=== PATIENT | male | born 1995 | race Caucasian/White ===

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

== ENCOUNTER 2017-07-07 15:58 | Emergency (ER) | payer BC ==
[~2017-07-07] VITALS: Wt 70.3 kg
== END 2017-07-07 16:17 | disposition home or self-care (01) ==
LOC: ED 15:58
DX: S09.8XXA Other specified injuries of head, initial encounter (principal); R03.0 Elevated blood-pressure reading, without diagnosis of hypertension; F17.200 Nicotine dependence, unspecified, uncomplicated; Z91.040 Latex allergy status; Z88.8 Allergy status to other drugs, medicaments and biological substances; X58.XXXA Exposure to other specified factors, initial encounter; Y93.89 Activity, other specified; Y92.89 Other specified places as the place of occurrence of the external cause; Y99.8 Other external cause status

== ENCOUNTER 2021-01-26 15:20 | Emergency (ER) | payer OTHER, BC ==
[~2021-01-26] VITALS: Ht 172.7 cm; Wt 81.6 kg
[2021-01-26] MEDS ORDERED: CYCLOBENZAPRINE5 M3 PO (18:03)
[2021-01-26] MEDS ORDERED: Motrin,Rufen800 MG PO (18:03)
== END 2021-01-26 18:30 | disposition home or self-care (01) ==
LOC: ED 15:20
DX: S16.1XXA Strain of muscle, fascia and tendon at neck level, initial encounter (principal); S09.90XA Unspecified injury of head, initial encounter; Z91.040 Latex allergy status; Z88.8 Allergy status to other drugs, medicaments and biological substances; Z98.890 Other specified postprocedural states; V49.9XXA Car occupant (driver) (passenger) injured in unspecified traffic accident, initial encounter; Y93.89 Activity, other specified; Y92.89 Other specified places as the place of occurrence of the external cause; Y99.8 Other external cause status

== ENCOUNTER 2021-04-17 08:02 | Emergency (ER) | payer BC ==
[~2021-04-17] VITALS: Wt 81.6 kg
[~2021-04-17 08:02] MED LIST changes: +CYCLOBENZAPRINE5 M3 PO; +Motrin,Rufen800 MG PO
== END 2021-04-17 10:20 | disposition home or self-care (01) ==
LOC: ED 08:02
DX: S60.221A Contusion of right hand, initial encounter (principal); Z91.040 Latex allergy status; Z88.8 Allergy status to other drugs, medicaments and biological substances; Z79.899 Other long term (current) drug therapy; Z96.22 Myringotomy tube(s) status; W20.8XXA Other cause of strike by thrown, projected or falling object, initial encounter; Y93.89 Activity, other specified; Y92.89 Other specified places as the place of occurrence of the external cause; Y99.8 Other external cause status

== ENCOUNTER 2021-07-19 00:53 | Emergency (ER) | payer BC ==
[~2021-07-19] VITALS: Ht 172.7 cm; Wt 82.6 kg
[2021-07-19 01:24] LABS: BASO % 0.4 % (0.0-1.0); EOS # 0.1 10*3/uL (0.0-0.4); EOS % 1.1 % (1.0-4.0); HEMATOCRIT 50.8 % (42.0-52.0); LYMPH # 2.3 10*3/uL (1.3-4.4); LYMPH % 25.7 % (27.0-41.0); MEAN CELL VOLUME 84.5 fl (80.0-94.0); MEAN CORPUSCULAR HGB 28.8 pg (27.0-31.0); MEAN CORPUSCULAR HGB CONC 34.1 g/dl (33.0-37.0); MEAN PLATELET VOLUME 9.8 fl (9.6-12.3); MONO # 0.7 10*3/uL (0.1-1.0); MONO % 7.8 % (3.0-9.0); NEUT # 5.9 10*3/uL (2.3-7.9); NEUT % 64.8 % (47.0-73.0); PLATELET COUNT AUTOMATED 362 10*3/uL (130-400); RED BLOOD COUNT 6.01 10*6/uL (4.50-5.90); RED CELL DISTRI WIDTH 12.3 % (0-14.5); WHITE BLOOD COUNT 9.1 10*3/uL (4.8-10.8)
[2021-07-19 01:40] LABS: ALBUMIN 4.8 gm/dl (3.1-4.5); ALKALINE PHOSPHATASE 92 U/L (45-117); BUN 19 mg/dl (7-24); CHLORIDE 106 mmol/L (98-107); CREATININE 1.17 mg/dL (0.70-1.30); LIPASE 230 U/L (73-393); POTASSIUM 4.1 mmol/L (3.5-5.1); SGOT/AST 18 IU/L (3-35); SGPT/ALT 37 U/L (12-78); SODIUM 138 mmol/L (136-145); TOTAL PROTEIN 8.7 gm/dL (6.4-8.2)
[2021-07-19] MEDS ORDERED: OMEPRAZOLE40 MG PO (01:49)
== END 2021-07-19 02:30 | disposition home or self-care (01) ==
LOC: ED 00:53
PROVIDERS: Internal Medicine
DX: K21.9 Gastro-esophageal reflux disease without esophagitis (principal); R19.7 Diarrhea, unspecified; Z91.040 Latex allergy status; Z88.8 Allergy status to other drugs, medicaments and biological substances; Z79.899 Other long term (current) drug therapy; Z96.22 Myringotomy tube(s) status

== ENCOUNTER 2022-11-21 15:38 | Emergency (ER) | payer BC ==
[~2022-11-21] VITALS: Ht 172.7 cm; Wt 85.7 kg
[~2022-11-21 15:38] MED LIST changes: +OMEPRAZOLE40 MG PO
[2022-11-21] MEDS ORDERED: ONDANSETRON4 MG SL (16:58)
== END 2022-11-21 17:02 | disposition home or self-care (01) ==
LOC: ED 15:38
DX: R11.2 Nausea with vomiting, unspecified (principal); R19.7 Diarrhea, unspecified; Z91.040 Latex allergy status; Z88.8 Allergy status to other drugs, medicaments and biological substances